=== PATIENT | male | born 1980 | race Caucasian/White ===

== ENCOUNTER 2021-01-14 12:47 | Outpatient (CLI) | payer OTHER ==
[~2021-01-14 12:47] MED LIST: Iopamidol-370 76% 500 ML 1 ML ONE
== END 2021-01-14 12:48 | disposition home or self-care (01) ==
LOC: BICCT 12:47
PROVIDERS: ATTEND Family Medicine
DX: R31.9 Hematuria, unspecified (principal); N28.9 Disorder of kidney and ureter, unspecified
CPT/HCPCS: 74178; Q9967

== ENCOUNTER 2022-04-19 08:28 | Outpatient (CLI) | payer OTHER | END 2022-04-19 08:29 | disposition home or self-care (01) | LOC: BICCT 08:28 | PROVIDERS: ATTEND Urology | DX: R31.9 Hematuria, unspecified (principal); N28.9 Disorder of kidney and ureter, unspecified | CPT/HCPCS: 74170 ==

== ENCOUNTER 2022-05-03 14:20 | Outpatient (CLI) | payer OTHER | END 2022-05-03 14:21 | disposition home or self-care (01) | LOC: CTENTCT 14:20 | PROVIDERS: ATTEND Physician Assistant | DX: J32.9 Chronic sinusitis, unspecified (principal); R68.89 Other general symptoms and signs; R51.9 Headache, unspecified | CPT/HCPCS: 70486 ==

== ENCOUNTER 2022-10-05 09:01 | Outpatient (CLI) | payer OTHER | END 2022-10-05 09:02 | disposition home or self-care (01) | LOC: LABBT 09:01 | PROVIDERS: ATTEND Student in an Organized Health Care Education/Training Program | DX: Z01.812 Encounter for preprocedural laboratory examination (principal) | CPT/HCPCS: 93005; 93010 ==

== ENCOUNTER 2023-04-06 14:40 | Outpatient (CLI) | payer OTHER | END 2023-04-06 14:41 | disposition home or self-care (01) | LOC: BICRAD 14:40 | PROVIDERS: ATTEND Family Medicine | DX: M54.2 Cervicalgia (principal); M54.50 Low back pain, unspecified | CPT/HCPCS: 72050; 72120 ==

== ENCOUNTER 2023-04-10 09:09 | Outpatient (CLI) | payer OTHER | END 2023-04-10 09:10 | disposition home or self-care (01) | LOC: ULT 09:09 | PROVIDERS: ATTEND Family Medicine | DX: M79.89 Other specified soft tissue disorders (principal) | CPT/HCPCS: 76999 ==

== ENCOUNTER 2023-07-06 12:17 | Outpatient (CLI) | payer OTHER | END 2023-07-06 12:18 | disposition home or self-care (01) | LOC: SCSMRI 12:17 | PROVIDERS: ATTEND Student in an Organized Health Care Education/Training Program | DX: M47.22 Other spondylosis with radiculopathy, cervical region (principal); M54.50 Low back pain, unspecified; M47.816 Spondylosis without myelopathy or radiculopathy, lumbar region; N28.9 Disorder of kidney and ureter, unspecified | CPT/HCPCS: 72141; 72148 ==

== ENCOUNTER 2023-12-24 08:58 | Outpatient (CLI) | payer OTHER | END 2023-12-24 08:59 | disposition home or self-care (01) | LOC: BICMRI 08:58 | PROVIDERS: ATTEND Orthopaedic Surgery | DX: M75.02 Adhesive capsulitis of left shoulder (principal); M25.312 Other instability, left shoulder ==

== ENCOUNTER 2024-01-25 07:42 | Outpatient (CLI) | payer OTHER | END 2024-01-25 07:43 | disposition home or self-care (01) | LOC: SCSMRI 07:42 | PROVIDERS: ATTEND Student in an Organized Health Care Education/Training Program | DX: M25.551 Pain in right hip (principal); G89.29 Other chronic pain; R20.2 Paresthesia of skin; S76.011A Strain of muscle, fascia and tendon of right hip, initial encounter; S73.101A Unspecified sprain of right hip, initial encounter; M67.853 Other specified disorders of tendon, right hip; M76.9 Unspecified enthesopathy, lower limb, excluding foot; J34.89 Other specified disorders of nose and nasal sinuses | CPT/HCPCS: 70553; 76377 ==